=== PATIENT | female | born 1970 | race African-American/Black ===

== ENCOUNTER 2017-09-04 13:00 | Emergency (ER) | payer BC, OTHER ==
[~2017-09-04 13:00] MED LIST: HYDR-971 PO; LORA10TA68 PO; LOSA25TA4 PO; MONT10TA9 PO; MULT1TAB52 PO
[2017-09-04 13:15] VITALS: BP 143/80
--- NOTE | 2017-09-04 13:38 | RAD ---
Three-view right ankle radiographs 09/04/2017 Clinical history: Twisting injury to the right ankle. AP, lateral and oblique digital radiographs of the right ankle were obtained. The right ankle mortise is intact. Soft tissue swelling is seen adjacent to the lateral malleolus of the right ankle. No acute fracture or dislocation of the right ankle is seen. A small bony density seen inferior to the lateral malleolus of the right ankle which may represent an old avulsion fracture. Mild enthesophyte formation is seen involving the posterior aspect of the right calcaneus. Impression: No acute fracture or dislocation of the right ankle is seen.
--- NOTE | 2017-09-04 13:39 | RAD ---
Three-view right foot radiographs 09/04/2017 Clinical history: Right foot pain post twisting injury. AP, lateral and oblique digital radiographs of the right foot were obtained. Mild hallux valgus deformity is noted. No fracture or dislocation of the right foot is seen. Mild to moderate degenerative changes are seen involving the first MTP joint. Impression: No fracture or dislocation of the right foot is seen.
[2017-09-04] MEDS ORDERED: CYCL5TAB PO (15:01)
[2017-09-04] MEDS ORDERED: ACETAMINOPHEN 500 MG TABLET PO ONE (15:30)
[2017-09-04] MEDS ORDERED: CYCLOBENZAPRINE 10 MG TABLET. PO ONE (15:30)
--- NOTE | 2017-09-04 21:22 | ED.ADGEN ---
Past History Past Medical History: No Pertinent History Past Surgical History: Hysterectomy Alcohol Use: None Drug Use: None Adult General HPI HPI Patient is a 47-year-old woman, history of donating kidney, hypertension, who presents emergency Department with complaint of right ankle pain. Patient states that several days ago she twisted her ankle, inverting it, while attending to turn and support the same time. Patient did not fall. She states that she noted swelling, and pain since that time, is having difficulty with weightbearing and ambulation. Patient noted to have swelling the lateral aspect of the right ankle. She denies any other injuries or complaints. She states she' s been taking ibuprofen at home intermittently for discomfort. Review of Systems Review of Systems Constitutional: Denies fever or chills [] Eyes: Denies change in visual acuity, redness, or eye pain [] HENT: Denies nasal congestion or sore throat [] Respiratory: Denies cough or shortness of breath [] Cardiovascular: No additional information not addressed in HPI [] GI: Denies abdominal pain, nausea, vomiting, bloody stools or diarrhea [] : Denies dysuria or hematuria [] Musculoskeletal: Denies back pain, right ankle pain. Integument: Denies rash or skin lesions [] Neurologic: Denies headache, focal weakness or sensory changes [] Endocrine: Denies polyuria or polydipsia [] Current Medications Current Medications Current Medications Medications (Trade) Dose Ordered Sig/[facility] Start Time Stop Time Status Last Admin Dose Admin Acetaminophen (Tylenol) 1,000 mg 1X ONCE 09/04/17 15:30 09/04/17 15:31 DC 09/04/17 15:27 1,000 MG Cyclobenzaprine HCl (Flexeril) 10 mg 1X ONCE 09/04/17 15:30 09/04/17 15:31 DC 09/04/17 15:27 10 MG Allergies Allergies Allergies Coded Allergies Type Severity Reaction Last Updated Verified Influenza Virus Vaccines Allergy Severe 11/10/15 Yes coconut Allergy Severe 05/01/16 Yes venom-honey bee Allergy Severe 05/01/16 Yes Physical Exam Physical Exam Constitutional: Well developed, well nourished, no acute distress, non-toxic appearance. [] HENT: Normocephalic, atraumatic, bilateral external ears normal, oropharynx moist, no oral exudates, nose normal. [] Eyes: PERRLA, EOMI, conjunctiva normal, no discharge. [] Neck: Normal range of motion, no tenderness, supple, no stridor. [] Cardiovascular:Heart rate regular rhythm, no murmur, S1, S2, rubs or gallops. [] Lungs & Thorax: Bilateral breath sounds clear to auscultation, no wheezing, rhonchi, rales. [] Abdomen: Bowel sounds normal, soft, no tenderness, no masses, no pulsatile masses. [] Skin: Warm, dry, no erythema, no rash. [] Back: No tenderness, no CVA tenderness. [] Extremities: Patient with soft tissue swelling surrounding the lateral malleolus , with tenderness palpation in this region, does radiate down into the dorsum of the foot, but no bony point tenderness or crepitus noted in this area, patient unable to weight-bear secondary to discomfort, otherwise no abnormalities or other findings identified the rest of the patient's examination , no tenderness in the knee or along the tib-fib, cyanosis, no clubbing, no edema. [] Neurologic: Alert and oriented X 3, normal motor function, normal sensory function, no focal deficits noted. [] Psychologic: Affect normal, judgement normal, mood normal. [] Current Patient Data Vital Signs Vital Signs Date Time Temp Pulse Resp B/P (MAP) Pulse Ox O2 Delivery O2 Flow Rate FiO2 09/04/17 13:15 98.3 97 16 98 Room Air EKG EKG Not indicated.[] Radiology/Procedures Radiology/Procedures [][address] [address] IMAGING REPORT Signed PATIENT: MICHELLE HENDRIX ACCOUNT: [id number] : 1970 LOCATION: ER AGE: 47 SEX: F EXAM STATUS: PRE ER ORD. PHYSICIAN: KAVITA TRUONG DO REASON: fall PROCEDURE: FOOT RIGHT 3V Three-view right foot radiographs 09/04/2017 Clinical history: Right foot pain post twisting injury. AP, lateral and oblique digital radiographs of the right foot were obtained. Mild hallux valgus deformity is noted. No fracture or dislocation of the right foot is seen. Mild to moderate degenerative changes are seen involving the first MTP joint. Impression: No fracture or dislocation of the right foot is seen. DICTATED AND SIGNED BY: GLENDY BLOCK MD DATE: 09/04/171335 CC: NEWTON JOEL APRN; KAVITA TRUONG DO ~ Impressions: [place] [address] IMAGING REPORT Signed PATIENT: MICHELLE HENDRIX ACCOUNT: [id number] : 1970 LOCATION: ER AGE: 47 SEX: F EXAM STATUS: PRE ER ORD. PHYSICIAN: KAVITA TRUONG DO REASON: fall PROCEDURE: ANKLE RIGHT 3V Three-view right ankle radiographs 09/04/2017 Clinical history: Twisting injury to the right ankle. AP, lateral and oblique digital radiographs of the right ankle were obtained. The right ankle mortise is intact. Soft tissue swelling is seen adjacent to the lateral malleolus of the right ankle. No acute fracture or dislocation of the right ankle is seen. A small bony density seen inferior to the lateral malleolus of the right ankle which may represent an old avulsion fracture. Mild enthesophyte formation is seen involving the posterior aspect of the right calcaneus. Impression: No acute fracture or dislocation of the right ankle is seen. DICTATED AND SIGNED BY: GLENDY BLOCK MD DATE: 09/04/171333 CC: NEWTON JOEL APRN; KAVITA TRUONG DO ~ Course & Med Decision Making Course & Med Decision Making Pertinent Labs and Imaging studies reviewed. (See chart for details) X-rays obtained of patient's right ankle and foot. Show a prior avulsion fracture, but no evidence of acute injury. However, due to the degree of swelling and discomfort at the patient's lateral malleolus, concern for high- grade sprain, patient placed in a posterior short-leg splint, given crutch walking instructions which she performed without issue. Patient instructed to continue use of [id number] medications as acetaminophen, and also given a short course of Flexeril for discomfort. Medication precautions and instructions discussed with patient who voiced understanding and agreement. Patient's is driving. Patient instructed to follow-up with Dr. Jacob orthopedics for additional evaluation, also given clear and detailed return instructions to prompt return to the ED. Patient voiced understanding and agreement with instructions precautions, ambulate in without difficulty and crutches upon exiting the ED. Final Impression Final Impression [] Problems: Dragvioleta Disclaimer Dragon Disclaimer This electronic medical record was generated, in whole or in part, using a voice recognition dictation system. Departure: Impression: Primary Impression: Ankle sprain Disposition: HOME, SELF-CARE Condition: IMPROVED Scripts Cyclobenzaprine Hcl (CYCLOBENZAPRINE HCL) 5 Mg Tablet 1 TAB PO TID Y for PAIN/MUSCLE SPASM, #12 TAB Prov: KAVITA TRUONG DO 09/04/17 KAVITA TRUONG DO Sep 04, 2017 21:22
== END 2017-09-04 16:00 | disposition home or self-care (01) ==
LOC: ER 13:00
DX: S93.401A Sprain of unspecified ligament of right ankle, initial encounter (principal); I10 Essential (primary) hypertension; Z91.030 Bee allergy status; Z88.7 Allergy status to serum and vaccine; Z91.048 Other nonmedicinal substance allergy status; X50.1XXA Overexertion from prolonged static or awkward postures, initial encounter; Y93.89 Activity, other specified; Y99.8 Other external cause status; Y92.89 Other specified places as the place of occurrence of the external cause
CPT/HCPCS: 29515; 73610; 73630; 99284-25

== ENCOUNTER → 2017-09-23 | Outpatient (CLI) | payer OTHER ==
[2017-09-04 13:15] VITALS: BP 143/80
[~2017-09-23] MED LIST changes: +CYCL5TAB PO
[2017-09-23 13:39] LABS: HEMATOCRIT 37.4 % (36.0-47.0); HEMOGLOBIN 12.4 g/dL (12.0-15.5)
[2017-09-23 13:51] LABS: ALBUMIN 3.4 g/dL (3.4-5.0); CALCIUM 8.8 mg/dL (8.5-10.1); CREATININE 1.3 mg/dL (0.6-1.0); GFR 53.4; MAGNESIUM 1.6 mg/dL (1.8-2.4); PHOSPHORUS 3.4 mg/dL (2.6-4.7); POTASSIUM 3.7 mmol/L (3.5-5.1)
[2017-09-24 14:12] LABS: CALCIUM PTH 9.1 mg/dL (8.7-10.2); CREATININE PTH 1.19 mg/dL (0.57-1.00); PTH INTACT 66 pg/mL (15-65)
== END | disposition home or self-care (01) ==
LOC: LAB 13:17
PROVIDERS: ATTEND Internal Medicine Nephrology
DX: I12.9 Hypertensive chronic kidney disease with stage 1 through stage 4 chronic kidney disease, or unspecified chronic kidney disease (principal); N18.2 Chronic kidney disease, stage 2 (mild); E83.42 Hypomagnesemia; R31.21 Asymptomatic microscopic hematuria; R80.1 Persistent proteinuria, unspecified; Z68.32 Body mass index [BMI] 32.0-32.9, adult; Z90.5 Acquired absence of kidney
CPT/HCPCS: 36415; 80069; 83735; 83970; 85014; 85018

== ENCOUNTER → 2017-10-17 | Outpatient (CLI) | payer OTHER ==
--- NOTE | 2017-10-17 10:41 | RAD ---
DATE: 10/17/2017 EXAM: DIGITAL SCREEN BILAT W/CAD HISTORY: Routine screening COMPARISON: 09/13/2016 This study was interpreted with the benefit of Computerized Aided Detection (CAD). FINDINGS: Breast Density: HETERO The breast parenchyma Is heterogeneouslyy dense, which could reduce sensitivity of mammography. Breast parenchyma level C. There are no dominant suspicious masses, suspicious microcalcifications or evidence of architectural distortion. IMPRESSION: Benign findings BI-RADS CATEGORY: 2 BENIGN FINDING RECOMMENDED FOLLOW-UP: 12M 12 MONTH FOLLOW-UP PQRS compliance statement: Patient information was entered into a reminder system with a target due date 10/17/2018 for the next mammogram. Mammography is a sensitive method for finding small breast cancers, but it does not detect them all and is not a substitute for careful clinical examination. A negative mammogram does not negate a clinically suspicious finding and should not result in delay in biopsying a clinically suspicious abnormality. "Our facility is accredited by the [employer] Mammography [employer]."
== END | disposition home or self-care (01) ==
LOC: MAMMO 09:14
PROVIDERS: ATTEND Nurse Practitioner Family
DX: Z12.31 Encounter for screening mammogram for malignant neoplasm of breast (principal)
CPT/HCPCS: G0202; 77067

== ENCOUNTER → 2017-12-09 | Outpatient (CLI) | payer OTHER ==
[2017-12-09 14:21] LABS: CALCIUM 9.4 mg/dL (8.5-10.1); GFR 72.2; POTASSIUM 3.7 mmol/L (3.5-5.1)
== END | disposition home or self-care (01) ==
LOC: LAB 13:42
PROVIDERS: ATTEND Nurse Practitioner Family
DX: I12.9 Hypertensive chronic kidney disease with stage 1 through stage 4 chronic kidney disease, or unspecified chronic kidney disease (principal); N18.2 Chronic kidney disease, stage 2 (mild); E83.42 Hypomagnesemia; R80.1 Persistent proteinuria, unspecified; R31.21 Asymptomatic microscopic hematuria; Z90.5 Acquired absence of kidney; Z68.34 Body mass index [BMI] 34.0-34.9, adult
CPT/HCPCS: 36415; 80048

== ENCOUNTER → 2018-02-10 | Outpatient (CLI) | payer OTHER ==
--- NOTE | 2018-02-10 13:46 | RAD ---
Lumbar spine, 3 views, 02/10/2018: History: Right leg pain, left leg numbness The lumbar vertebral heights and intervertebral disc spaces are well-maintained. No fracture or dislocation is evident. There is only minimal sclerotic change involving lower lumbar facet joints. Retroperitoneal surgical clips are noted on the left. IMPRESSION: No acute lumbar spine abnormality is detected.
== END | disposition home or self-care (01) ==
LOC: DXRAD 13:17
PROVIDERS: ATTEND Nurse Practitioner Family
DX: M54.5 Low back pain (principal)
CPT/HCPCS: 72100

== ENCOUNTER → 2018-10-13 | Outpatient (CLI) | payer BC ==
[~2018-10-13] MED LIST changes: +HYDR-3165 PO; -HYDR-971 PO; -LOSA25TA4 PO; +LOSA25TA5 PO
[2018-10-13 09:58] LABS: HEMATOCRIT 39.2 % (36.0-47.0)
[2018-10-13 10:07] LABS: ALBUMIN 3.4 g/dL (3.4-5.0); CALCIUM 8.8 mg/dL (8.5-10.1); GFR 71.9; MAGNESIUM 1.8 mg/dL (1.8-2.4); PHOSPHORUS 3.7 mg/dL (2.6-4.7); POTASSIUM 3.9 mmol/L (3.5-5.1); URIC ACID 6.2 mg/dL (2.6-6.0)
[2018-10-13 10:10] LABS: BACTERIA,URINE MOD /HPF (0-FEW); BILIRUBIN,URINE NEG (NEG); CLARITY,URINE HAZY; COLOR,URINE YELLOW; GLUCOSE,URINE NEG (NEG); NITRITE,URINE NEG (NEG); RBC,URINE OCC /HPF (0-2); SQUAMOUS EPITHELIAL CELL,UR MANY /LPF; UROBILINOGEN,URINE 0.2 mg/dL (0.2 mg/dL); WBC,URINE 0 /HPF (0-4)
[2018-10-13 18:11] LABS: CALCIUM PTH 9.4 mg/dL (8.7-10.2); CREATININE PTH 0.89 mg/dL (0.57-1.00); MICRO CREAT RATIO 174.1 mg/g creat (0.0-30.0); MICROALB RD UR 274.5 ug/mL (Not Estab.); PTH INTACT 56 pg/mL (15-65)
== END | disposition home or self-care (01) ==
LOC: LAB 09:09
PROVIDERS: ATTEND Nurse Practitioner Family
DX: I12.9 Hypertensive chronic kidney disease with stage 1 through stage 4 chronic kidney disease, or unspecified chronic kidney disease (principal); N18.3 Chronic kidney disease, stage 3 (moderate); E83.42 Hypomagnesemia; R80.1 Persistent proteinuria, unspecified; R31.21 Asymptomatic microscopic hematuria; Z68.34 Body mass index [BMI] 34.0-34.9, adult
CPT/HCPCS: 36415; 80069; 81001; 82043; 82306; 82570; 83735; 83970; 84156; 84550; 85014; 85018; 87086

== ENCOUNTER → 2018-11-10 | Outpatient (CLI) | payer BC ==
[~2018-11-10] MED LIST changes: +LOSA25TA11 PO; -LOSA25TA5 PO
--- NOTE | 2018-11-10 10:23 | RAD ---
DATE: 11/10/2018 EXAM: DIGITAL SCREEN BILAT W/CAD HISTORY: Routine screening COMPARISON: 10/17/2017 This study was interpreted with the benefit of Computerized Aided Detection (CAD). Breast Density: HETERO The breast parenchyma is heterogenously dense, which could reduce sensitivity of mammography. Breast parenchyma level C. FINDINGS: No new or enlarging breast densities are seen. Minimal benign type calcification is present. No suspicious microcalcifications have developed. IMPRESSION: Stable mammograms without evidence of malignancy. BI-RADS CATEGORY: 2 BENIGN FINDING(S) RECOMMENDED FOLLOW-UP: 12M 12 MONTH FOLLOW-UP PQRS compliance statement: Patient information was entered into a reminder system with a target due date for the next mammogram. Mammography is a sensitive method for finding small breast cancers, but it does not detect them all and is not a substitute for careful clinical examination. A negative mammogram does not negate a clinically suspicious finding and should not result in delay in biopsying a clinically suspicious abnormality. "Our facility is accredited by the [employer] Mammography Program."
== END | disposition home or self-care (01) ==
LOC: MAMMO 09:10
PROVIDERS: ATTEND Physician Assistant
DX: Z12.31 Encounter for screening mammogram for malignant neoplasm of breast (principal)
CPT/HCPCS: 77067

== ENCOUNTER 2019-05-06 15:39 | Emergency (ER) | payer BC ==
[~2019-05-06 15:39] MED LIST changes: +MONT10TA80 PO; -MONT10TA9 PO
[2019-05-06] MEDS ORDERED: methylPREDNISolone SOD SUCC PF 125 MG/2 ML VIAL. IV ONE (16:15)
[2019-05-06] MEDS ORDERED: IV NORMAL SALINE 1,000ML 1,000 ML IV ONE (16:15)
[2019-05-06] MEDS ORDERED: IOHEXOL 300 MG/ML 75 ML VIAL. IV ONE (16:30)
[2019-05-06 17:01] LABS: BASO # 0.1 x10^3/uL (0.0-0.2); BASO % 1 % (0-3); EOS # 0.2 x10^3/uL (0.0-0.7); EOS % 2 % (0-3); HEMATOCRIT 43.6 % (36.0-47.0); HEMOGLOBIN 14.5 g/dL (12.0-15.5); LYMPH % 19 % (24-48); MEAN CORPUSCULAR HEMOGLOBIN 27 pg (25-35); MEAN CORPUSCULAR HGB CONC 33 g/dL (31-37); MEAN CORPUSCULAR VOLUME 83 fL (79-100); MONO # 1.1 x10^3/uL (0.0-1.1); MONO % 10 % (0-9); NEUT # 7.3 x10^3uL (1.8-7.7); NEUT % 68 % (31-73); PLATELET COUNT 269 x10^3/uL (140-400); RED BLOOD COUNT 5.27 x10^6/uL (3.50-5.40); RED CELL DISTRIBUTION WIDTH 15.3 % (11.5-14.5); WHITE BLOOD COUNT 10.7 x10^3/uL (4.0-11.0)
[2019-05-06 17:09] LABS: ALBUMIN 3.6 g/dL (3.4-5.0); ALBUMIN/GLOBULIN RATIO 0.6 (1.0-1.7); CREATININE 1.1 mg/dL (0.6-1.0); GFR 64.4; POTASSIUM 3.5 mmol/L (3.5-5.1); TOTAL BILIRUBIN 0.6 mg/dL (0.2-1.0); TOTAL PROTEIN 9.6 g/dL (6.4-8.2)
--- NOTE | 2019-05-06 17:44 | RAD ---
Examination: CT SOFT TISSUE NECK W/CONTRAST History: Throat pain Comparison/Correlation: None Findings: Axial images of the neck were obtained following IV contrast. Sagittal and coronal reformatted images were provided. Imaging was performed from the level of the frontal sinuses to the lung apices. Globes and optic nerves are unremarkable. Extraocular muscles are unremarkable. Minimal mucosal thickening of ethmoid air cells noted. Parotid and submandibular glands are unremarkable. Adenoidal soft tissue prominence is evident. There is a left tonsillar gas-fluid collection measuring up to 1.4 cm diameter. Right tonsil is diffusely also enlarged but without a focal collection. Multiple lymph nodes are present at the level 2A region bilaterally with short axis diameter of up to 1 cm. Upper cervical lymph nodes bilaterally are also present and small in size. Bony structures are unremarkable. True and false cords are symmetric. Epiglottis is normal. Thyroid gland is unremarkable Impression: Left tonsillar abscess. Associated reactive lymphadenopathy. PQRS Compliance Statement: One or more of the following individualized dose reduction techniques were utilized for this examination: 1. Automated exposure control 2. Adjustment of the mA and/or kV according to patient size 3. Use of iterative reconstruction technique Electronically signed by: Zay Burt MD (05/06/2019 5:41 PM) [facility]
--- NOTE | 2019-05-06 17:56 | PHYS DOC ---
Past History Past Medical History: No Pertinent History (MANPREET HART DO) Past Surgical History: Hysterectomy, Other (MANPREET HART DO) Alcohol Use: None Drug Use: None (MANPREET HART DO) Adult General Chief Complaint Chief Complaint: SORE THROAT HPI HPI 48-year-old female presents with sore throat. Patient has had a sore throat for 3 days now. She said it is progressively getting worse. She presents today because she cannot really swallow anything. She is forcing herself to drink some water. She denies shortness of breath. She does not have a history of strep actions as an adult. No one else her family is sick. The patient has had chills but no measured fever. She looked in the mirror noticed her uvula was enlarged tonsils seemed enlarged. She denies cough, nausea, vomiting, or diarrhea. (MANPREET HART DO) Review of Systems Review of Systems Constitutional: Denies fever or chills [] Eyes: Denies change in visual acuity, redness, or eye pain [] HENT: sore throat [] Respiratory: Denies cough or shortness of breath [] Cardiovascular: No additional information not addressed in HPI [] GI: Denies abdominal pain, nausea, vomiting, bloody stools or diarrhea [] : Denies dysuria or hematuria [] Musculoskeletal: Denies back pain or joint pain [] Integument: Denies rash or skin lesions [] Neurologic: Denies headache, focal weakness or sensory changes [] Endocrine: Denies polyuria or polydipsia [] All other systems were reviewed and found to be within normal limits, except as documented in this note. (MANPREET HART DO) Current Medications Current Medications Current Medications Medications (Trade) Dose Ordered Sig/[facility] Start Time Stop Time Status Last Admin Dose Admin Iohexol (Omnipaque 300 Mg/ml) 75 ml 1X ONCE 05/06/19 16:30 05/06/19 16:31 DC Methylprednisolone Sodium Succinate (SOLU-Medrol 125MG VIAL) 125 mg 1X ONCE 05/06/19 16:15 05/06/19 16:23 DC 05/06/19 16:15 125 MG Sodium Chloride 1,000 ml @ 1,000 mls/hr 1X ONCE 05/06/19 16:15 05/06/19 17:14 DC 05/06/19 16:15 1,000 MLS/HR (MANPREET HART DO) Allergies Allergies Allergies Coded Allergies Type Severity Reaction Last Updated Verified Influenza Virus Vaccines Allergy Severe 11/10/15 Yes coconut Allergy Severe 05/01/16 Yes venom-honey bee Allergy Severe 05/01/16 Yes (MANPREET HART DO) Physical Exam Physical Exam Constitutional: Well developed, well nourished, no acute distress, non-toxic appearance. [] HENT: Normocephalic, atraumatic, bilateral external ears normal, oropharynx erythematous with enlarged uvula and bilateral tonsils. Airway decreased in diameter.[] Eyes: PERRLA, EOMI, conjunctiva normal, no discharge. [] Neck: Normal range of motion, no tenderness, supple, no stridor. [] Cardiovascular:Heart rate regular rhythm, no murmur [] Lungs & Thorax: Bilateral breath sounds clear to auscultation [] Abdomen: Bowel sounds normal, soft, no tenderness, no masses, no pulsatile masses. [] Skin: Warm, dry, no erythema, no rash. [] Back: No tenderness, no CVA tenderness. [] Extremities: No tenderness, no cyanosis, no clubbing, ROM intact, no edema. [] Neurologic: Alert and oriented X 3, normal motor function, normal sensory function, no focal deficits noted. [] Psychologic: Affect normal, judgement normal, mood normal. [] (MANPREET HART DO) Current Patient Data Vital Signs Vital Signs Date Time Temp Pulse Resp B/P (MAP) Pulse Ox O2 Delivery O2 Flow Rate FiO2 05/06/19 15:58 99.4 107 18 99 Room Air Lab Results Laboratory Tests Test 05/06/19 15:56 05/06/19 16:34 Group A Streptococcus Rapid Negative (NEGATIVE) White Blood Count 10.7 x10^3/uL (4.0-11.0) Red Blood Count 5.27 x10^6/uL (3.50-5.40) Hemoglobin 14.5 g/dL (12.0-15.5) Hematocrit 43.6 % (36.0-47.0) Mean Corpuscular Volume 83 fL (79-100) Mean Corpuscular Hemoglobin 27 pg (25-35) Mean Corpuscular Hemoglobin Concent 33 g/dL (31-37) Red Cell Distribution Width 15.3 % (11.5-14.5) H Platelet Count 269 x10^3/uL (140-400) Neutrophils (%) (Auto) 68 % (31-73) Lymphocytes (%) (Auto) 19 % (24-48) L Monocytes (%) (Auto) 10 % (0-9) H Eosinophils (%) (Auto) 2 % (0-3) Basophils (%) (Auto) 1 % (0-3) Neutrophils # (Auto) 7.3 x10^3uL (1.8-7.7) Lymphocytes # (Auto) 2.0 x10^3/uL (1.0-4.8) Monocytes # (Auto) 1.1 x10^3/uL (0.0-1.1) Eosinophils # (Auto) 0.2 x10^3/uL (0.0-0.7) Basophils # (Auto) 0.1 x10^3/uL (0.0-0.2) Sodium Level 142 mmol/L (136-145) Potassium Level 3.5 mmol/L (3.5-5.1) Chloride Level 102 mmol/L (98-107) Carbon Dioxide Level 29 mmol/L (21-32) Anion Gap 11 (6-14) Blood Urea Nitrogen 18 mg/dL (7-20) Creatinine 1.1 mg/dL (0.6-1.0) H Estimated GFR (Cockcroft-Gault) 64.4 BUN/Creatinine Ratio 16 (6-20) Glucose Level 103 mg/dL (70-99) H Calcium Level 10.0 mg/dL (8.5-10.1) Total Bilirubin 0.6 mg/dL (0.2-1.0) Aspartate Amino Transferase (AST) 25 U/L (15-37) Alanine Aminotransferase (ALT) 28 U/L (14-59) Alkaline Phosphatase 140 U/L (46-116) H Total Protein 9.6 g/dL (6.4-8.2) H Albumin 3.6 g/dL (3.4-5.0) Albumin/Globulin Ratio 0.6 (1.0-1.7) L (MANPREET HART DO) EKG EKG [] (MANPREET HART DO) Radiology/Procedures Radiology/Procedures [] Impressions: Examination: CT SOFT TISSUE NECK W/CONTRAST History: Throat pain Comparison/Correlation: None Findings: Axial images of the neck were obtained following IV contrast. Sagittal and coronal reformatted images were provided. Imaging was performed from the level of the frontal sinuses to the lung apices. Globes and optic nerves are unremarkable. Extraocular muscles are unremarkable. Minimal mucosal thickening of ethmoid air cells noted. Parotid and submandibular glands are unremarkable. Adenoidal soft tissue prominence is evident. There is a left tonsillar gas-fluid collection measuring up to 1.4 cm diameter. Right tonsil is diffusely also enlarged but without a focal collection. Multiple lymph nodes are present at the level 2A region bilaterally with short axis diameter of up to 1 cm. Upper cervical lymph nodes bilaterally are also present and small in size. Bony structures are unremarkable. True and false cords are symmetric. Epiglottis is normal. Thyroid gland is unremarkable Impression: Left tonsillar abscess. Associated reactive lymphadenopathy. PQRS Compliance Statement: One or more of the following individualized dose reduction techniques were utilized for this examination: 1. Automated exposure control 2. Adjustment of the mA and/or kV according to patient size 3. Use of iterative reconstruction technique Electronically signed by: Zay Lerma MD (05/06/2019 5:41 PM) [facility] DICTATED AND SIGNED BY: ZAY LERMA MD DATE: 05/06/19 174 CC: MANPREET HART DO; DEVI HOU ~ (MANPREET HART DO) Course & Med Decision Making Course & Med Decision Making Pertinent Labs and Imaging studies reviewed. (See chart for details) The patient's rapid strep is negative. She has a quite swollen tonsils and uvula. Abdomen her 125 of Solu-Medrol. Also given the patient 1 L normal saline. Her labs are unremarkable. The patient appears to have a tonsillar abscess on CT. We do not have ENT at this facility, so she will need to be transferred for surgical drainage. I will treat her with 3 g of Unasyn. I am signing the patient out to Dr. Virgen who will contact ENT and determine a disposition plan for the patient. [] (MANPREET HART DO) Course & Med Decision Making Patient with 1.7 cm left peritonsillar abscess on CT scan. IV Decadron and Unasyn given. Case reviewed in detail with on-call ENT at [facility]. Recommendations are transferred to ED for bedside incision and drainage. Patient family agreed to take patient by private vehicle and patient agrees to remain nothing by mouth. Patient stable at time of transfer (MANPREET VIRGEN DO) Dragon Disclaimer Dragon Disclaimer This electronic medical record was generated, in whole or in part, using a voice recognition dictation system. (MANPREET HART DO) Departure Departure: Impression: Primary Impression: Tonsil, abscess Referrals: DEVI HOU (PCP) MANPREET HART DO May 06, 2019 17:56 MANPREET VIRGEN DO May 06, 2019 19:02
[2019-05-06] MEDS ORDERED: AMPICILLIN/SULBACTAM 3 GM in IV NORMAL SALINE 100ML 100 ML IV ONE (18:00)
[2019-05-06 18:55] VITALS: BP 143/86
[2019-05-06] MEDS ORDERED: cefTRIAXone SODIUM 1 GM VIAL ONE (19:13)
[2019-05-06] MEDS ORDERED: cefTRIAXone IM 1 GM VIAL IM ONE (19:15)
== END 2019-05-06 19:18 | disposition short-term general hospital (02) ==
LOC: ER 15:39
DX: J36 Peritonsillar abscess (principal); Z91.030 Bee allergy status; Z88.7 Allergy status to serum and vaccine; Z91.018 Allergy to other foods
CPT/HCPCS: 36415; 70491; 80053; 85025; 87070; 87880; 96372; 96374; 99285; J0696; J2930; J7030

== ENCOUNTER → 2019-12-28 | Outpatient (CLI) | payer BC, OTHER ==
[2019-12-28 15:50] LABS: ALBUMIN 3.8 g/dL (3.4-5.0); CALCIUM 8.8 mg/dL (8.5-10.1); CREATININE 0.9 mg/dL (0.6-1.0); GFR 80.9; MAGNESIUM 1.7 mg/dL (1.8-2.4); PHOSPHORUS 4.3 mg/dL (2.6-4.7); POTASSIUM 3.5 mmol/L (3.5-5.1)
[2019-12-28 15:52] LABS: HEMOGLOBIN 12.7 g/dL (12.0-15.5)
[2019-12-28 16:31] LABS: BILIRUBIN,URINE NEG (NEG); CLARITY,URINE HAZY; COLOR,URINE YELLOW; GLUCOSE,URINE NEG (NEG); NITRITE,URINE NEG (NEG); UROBILINOGEN,URINE 0.2 mg/dL (0.2 mg/dL)
[2019-12-28 16:33] LABS: BACTERIA,URINE FEW /HPF (0-FEW); RBC,URINE OCC /HPF (0-2); SQUAMOUS EPITHELIAL CELL,UR MOD /LPF; WBC,URINE OCC /HPF (0-4); YEAST,URINE PRESENT /HPF
[2019-12-29 07:09] LABS: MICROALB RD UR 241.8 ug/mL (Not Estab.)
[2019-12-29 11:03] LABS: CREATININE,RANDOM URINE 174.5 mg/dL (Not Establ.)
== END | disposition home or self-care (01) ==
LOC: LAB 15:08
PROVIDERS: ATTEND Internal Medicine Nephrology
DX: N18.2 Chronic kidney disease, stage 2 (mild) (principal); Z68.34 Body mass index [BMI] 34.0-34.9, adult
CPT/HCPCS: 36415; 80069; 81001; 82043; 82570; 83735; 84156; 85014; 85018; 87086

== ENCOUNTER → 2020-03-17 | Outpatient (CLI) | payer BC, OTHER ==
--- NOTE | 2020-03-19 16:25 | RAD ---
History: Routine screening. Technique: Bilateral digital mammographic routine views were obtained with CAD - computer aided detection. Comparison: 08/11/2015, 09/13/2016, 10/17/2017, 11/10/2018. Findings: Breast Tissue Density B :The breast tissue is composed of mixed fatty and fibroglandular tissue. There are no suspicious masses, microcalcifications or areas of architectural distortion. Impression: Negative mammogram. BI-RADS Category 1: Negative. Normal interval followup. A mammogram does not have 100% sensitivity and therefore a negative imaging study should not delay further work up of a suspicious abnormality. The patient will receive a letter with the results in the mail. Patient information is entered into the reminder system with a target due date for the next screening mammogram. The patient will receive a reminder. "Our facility is accredited by the [employer] Mammography Program." BI-RADS 1 -- negative findings (within normal)
== END | disposition home or self-care (01) ==
LOC: MAMMO 09:37
PROVIDERS: ATTEND Physician Assistant
DX: Z12.31 Encounter for screening mammogram for malignant neoplasm of breast (principal)
CPT/HCPCS: 77067

== ENCOUNTER → 2021-01-22 | Outpatient (CLI) | payer BC, OTHER ==
[~2021-01-22] MED LIST changes: +MULT-445 PO; -MULT1TAB52 PO
[2021-01-22 16:21] LABS: HEMOGLOBIN 13.2 g/dL (12.0-15.5)
[2021-01-22 16:34] LABS: ALBUMIN 3.8 g/dL (3.4-5.0); CALCIUM 9.2 mg/dL (8.5-10.1); GFR 71.3; MAGNESIUM 1.9 mg/dL (1.8-2.4); PHOSPHORUS 5.4 mg/dL (2.6-4.7); POTASSIUM 3.9 mmol/L (3.5-5.1)
[2021-01-22 16:42] LABS: BACTERIA,URINE FEW /HPF (0-FEW); BILIRUBIN,URINE NEG (NEG); CLARITY,URINE CLEAR; COLOR,URINE YELLOW; GLUCOSE,URINE NEG (NEG); NITRITE,URINE NEG (NEG); RBC,URINE OCC /HPF (0-2); UROBILINOGEN,URINE 0.2 mg/dL (0.2 mg/dL); WBC,URINE OCC /HPF (0-4)
[2021-01-22 16:43] LABS: SQUAMOUS EPITHELIAL CELL,UR FEW /LPF
[2021-01-23 01:07] LABS: MICROALB RD UR 312.4 ug/mL (Not Estab.)
== END ==
LOC: LAB 15:35
PROVIDERS: ATTEND Internal Medicine Nephrology
DX: I12.9 Hypertensive chronic kidney disease with stage 1 through stage 4 chronic kidney disease, or unspecified chronic kidney disease (principal); N18.2 Chronic kidney disease, stage 2 (mild); E83.42 Hypomagnesemia; R80.9 Proteinuria, unspecified; Z68.34 Body mass index [BMI] 34.0-34.9, adult; Z90.5 Acquired absence of kidney
CPT/HCPCS: 80069; 81001; 82043; 82570; 83735; 84156; 85014; 85018

== ENCOUNTER → 2021-03-20 | Outpatient (CLI) | payer BC, OTHER ==
--- NOTE | 2021-03-20 17:57 | RAD ---
DATE: 03/20/2021 EXAM: DIGITAL SCREEN BILAT W/CAD HISTORY: Screening. COMPARISON: Multiple prior exams dating back to 08/11/2015 This study was interpreted with the benefit of Computerized Aided Detection (CAD). Breast Density: SCATTERED The breast parenchyma shows scattered fibroglandular densities. Breast parenchyma level B. FINDINGS: No mass, suspicious calcification, or architectural distortion in either breast. IMPRESSION: No evidence of malignancy. BI-RADS CATEGORY: 1 NEGATIVE RECOMMENDED FOLLOW-UP: 12M 12 MONTH FOLLOW-UP PQRS compliance statement: Patient information was entered into a reminder system with a target due date for the next mammogram. Mammography is a sensitive method for finding small breast cancers, but it does not detect them all and is not a substitute for careful clinical examination. A negative mammogram does not negate a clinically suspicious finding and should not result in delay in biopsying a clinically suspicious abnormality. "Our facility is accredited by the [employer] Mammography Program."
== END ==
LOC: MAMMO 08:18
PROVIDERS: ATTEND Physician Assistant
DX: Z12.31 Encounter for screening mammogram for malignant neoplasm of breast (principal)
CPT/HCPCS: 77067

== ENCOUNTER → 2021-04-14 | Outpatient (CLI) | payer BC, OTHER ==
--- NOTE | 2021-04-14 11:27 | RAD ---
Ultrasound soft tissues of the head and neck without comparison for lymphadenopathy, right mandibular lump, posterior left ear lump. TECHNIQUE AND FINDINGS: Real-time grayscale and color Doppler evaluation of the areas of interest is performed. On the right, within the subcutaneous tissues overlying the ramus of the mandible just bel ow the earlobe there is a 0.9 x 0.6 x 0.5 cm anechoic smoothly marginated wider than tall solid abnor mality with internal color flow. This most likely represents a lymph node, however no definite fatty hilum is seen in its morphology is considered pathologic in appearance. In the left posterior reticul ar area there is a second similar-appearing lesion measuring 0.6 x 0.4 x 0.2 cm, which is slightly mo re sessile and is not included demonstrable color flow. This also likely represents a lymph node, but is too small to characterize as pathologic or normal. IMPRESSION: 1. 9 mm subcutaneous nodule overlying the ramus of mandible on the right consistent with a small lymp h node. As no fatty hilum is seen, this lymph node is morphologically abnormal. Most likely etiologie s are infectious or inflammatory, however other etiologies cannot be definitively excluded. Recommend follow-up clinical evaluation and repeat ultrasound for persistence in 6-12 weeks. 2. 6 mm subcutaneous lymph node in the left retroauricular region. 2 small to characterize as normal versus pathologic, however benignity is favored given the patient's history of recent decrease in siz e. Electronically signed by: Gino Ahmadi MD (04/14/2021 11:25 AM) [id number]
== END ==
LOC: US 10:23
PROVIDERS: ATTEND Physician Assistant Medical
DX: L04.0 Acute lymphadenitis of face, head and neck (principal)
CPT/HCPCS: 76536

== ENCOUNTER → 2022-01-25 | Outpatient (CLI) | payer BC, OTHER ==
[2022-01-25 12:43] LABS: HEMATOCRIT 42.6 % (36.0-47.0); HEMOGLOBIN 13.8 g/dL (12.0-15.5)
[2022-01-25 12:49] LABS: BACTERIA,URINE 0 /HPF (0-FEW); CLARITY,URINE CLEAR; COLOR,URINE YELLOW; GLUCOSE,URINE NEG (NEG); NITRITE,URINE NEG (NEG); UROBILINOGEN,URINE 0.2 mg/dL (0.2 mg/dL); WBC,URINE OCC /HPF (0-4)
[2022-01-25 14:05] LABS: ALBUMIN 3.7 g/dL (3.4-5.0); CALCIUM 8.9 mg/dL (8.5-10.1); PHOSPHORUS 3.9 mg/dL (2.6-4.7); POTASSIUM 4.3 mmol/L (3.5-5.1)
[2022-01-26 10:18] LABS: MICROALB RD UR 115.2 ug/mL (Not Estab.)
[2022-01-26 15:09] LABS: CREATININE,RANDOM URINE 111.3 mg/dL (Not Establ.)
== END ==
LOC: LAB 12:01
PROVIDERS: ATTEND Internal Medicine Nephrology
DX: N18.2 Chronic kidney disease, stage 2 (mild) (principal); R80.1 Persistent proteinuria, unspecified; E83.42 Hypomagnesemia
CPT/HCPCS: 80069; 81001; 82043; 82570; 84156; 85014; 85018; 87086

== ENCOUNTER 2022-02-22 23:03 | Emergency (ER) | payer BC, OTHER ==
[~2022-02-22] VITALS: Ht 177.8 cm; Wt 105.5 kg
--- NOTE | 2022-02-22 23:15 | PHYS DOC ---
Past History Past Medical History: No Pertinent History Past Surgical History: Hysterectomy, Other Alcohol Use: None Drug Use: None General Adult HPI: HPI: ".. I was cleaning my ears.. with qtip.. and it broke off in my ear... my tried to get it out... but could nt..," Patient is a 51 year old female who presents with above hx and complaints of Q- tip broke off in her .. Right. ear,. The patient states it feels still like the Q-tip is in her ear. Patient does have excoriations of her canal on the right. Patient does have some retaining wax that is impacted up against the eardrum. No foreign body appreciated. There is a possibility that the Q-tip is lodged behind the obstructed wax. Patient did not allow at least 1 attempt to clear the wax with a loop, but canal was too tender for her to allow for seizure be completed. Pt. normally follows with [facility]. Patient to use Cortisporin eardrops 2 drops 4 times a day until follow-up with primary care. We have eardrum and canal rechecked. At time of follow-up left canal is healed enough may attempt irrigation of the wax. Cortisporin should also aid in softening the wax and reduce the inflammation that she currently has of the canal. Review of Systems: Review of Systems: Constitutional: Denies fever or chills Eyes: Denies change in visual acuity HENT: Denies nasal congestion or sore throat. Complains of right ear pain and a foreign body in right ear Respiratory: Denies cough or shortness of breath Cardiovascular: Denies chest pain or edema GI: Denies abdominal pain, nausea, vomiting, bloody stools or diarrhea : Denies dysuria Musculoskeletal: Denies back pain or joint pain Integument: Denies rash Neurologic: Denies headache, focal weakness or sensory changes Endocrine: Denies polyuria or polydipsia Lymphatic: Denies swollen glands Psychiatric: Denies depression or anxiety Family History: Family History: Noncontributory to presentation Current Medications: Current Meds: See nursing for home meds Allergies: Allergies: Allergies Coded Allergies Type Severity Reaction Last Updated Verified Influenza Virus Vaccines Allergy Severe 11/10/15 Yes coconut Allergy Severe 05/01/16 Yes venom-honey bee Allergy Severe 6/18/16 Yes Physical Exam: PE: Constitutional: Well developed, well nourished, moderate acute distress, non- toxic appearance. [] HENT: Normocephalic, atraumatic, bilateral external ears normal, oropharynx moist, no oral exudates, nose normal. Except findings in right ear canal as per HPI Eyes: PERRLA, EOMI, conjunctiva normal, no discharge. [] Neck: Normal range of motion, no tenderness, supple, no stridor. [] Cardiovascular:Heart rate regular rhythm, no murmur [] Lungs & Thorax: Bilateral breath sounds clear to auscultation [] Abdomen: Bowel sounds normal, soft, no tenderness, no masses, no pulsatile masses. [] Skin: Warm, dry, no erythema, no rash. [] Back: No tenderness, no CVA tenderness. [] Extremities: No tenderness, no cyanosis, no clubbing, ROM intact, no edema. [] Neurologic: Alert and oriented X 3, normal motor function, normal sensory function, no focal deficits noted. [] Psychologic: Affect anxious, judgement normal, mood normal. [] EKG: EKG: [] Radiology/Procedures: Radiology/Procedures: [] Heart Score: C/O Chest Pain: N/A Risk Factors: Risk Factors: DM, Current or recent (<one month) smoker, HTN, HLP, family history of CAD, obesity. Risk Scores: Score 0 - 3: 2.5% MACE over next 6 weeks - Discharge Home Score 4 - 6: 20.3% MACE over next 6 weeks - Admit for Clinical Observation Score 7 - 10: 72.7% MACE over next 6 weeks - Early Invasive Strategies Course & Med Decision Making: Course & Med Decision Making Pertinent Labs and Imaging studies reviewed. (See chart for details) Patient use Cortisporin eardrops 2 drops 4 times a day. Take Tylenol and ibuprofen for pain. Follow-up with primary care. On follow-up if canal is healed adequately may attempt irrigation of canal to remove wax obstruction. No foreign body found on my exam. Impression: 1. History of foreign body right ear canal 2. Right ear canal excoriations and wax obstruction [] Dragon Disclaimer: Dragon Disclaimer: This electronic medical record was generated, in whole or in part, using a voice recognition dictation system. Departure Departure: Referrals: RIN SANCHES (PCP) Ramos Disclaimer This chart was dictated in whole or in part using Voice Recognition software in a busy, high-work load, and often noisy Emergency Department environment. It may contain unintended and wholly unrecognized errors or omissions. Dragon Disclaimer This chart was dictated in whole or in part using Voice Recognition software in a busy, high-work load, and often noisy Emergency Department environment. It may contain unintended and wholly unrecognized errors or omissions. ALEX ABBASI MD Feb 22, 2022 23:15
[2022-02-22 23:21] VITALS: BP 164/93
[2022-02-23] MEDS: NEOMYCIN/POLYMYXIN/HC OTIC SUSPENSION 10ML BOTTLE. AD ONE (00:25)
== END 2022-02-23 00:28 | disposition home or self-care (01) ==
LOC: ER 23:03
DX: T16.1XXA Foreign body in right ear, initial encounter (principal); S00.411A Abrasion of right ear, initial encounter; H61.301 Acquired stenosis of right external ear canal, unspecified; Z88.7 Allergy status to serum and vaccine; Z91.018 Allergy to other foods; Z91.030 Bee allergy status; X58.XXXA Exposure to other specified factors, initial encounter; Y93.89 Activity, other specified; Y92.89 Other specified places as the place of occurrence of the external cause; Y99.8 Other external cause status
CPT/HCPCS: 99282